=== PATIENT | male | born 1995 | race African-American/Black ===

== ENCOUNTER 2017-10-29 16:39 | Emergency (ER) | payer OTHER ==
[~2017-10-29] VITALS: Ht 180.3 cm; Wt 112.0 kg
[2017-10-29 16:50] VITALS: Ht 180.3 cm; Wt 112.0 kg
[2017-10-29] MEDS ORDERED: CLX40 PO (17:23)
--- NOTE | 2017-10-29 17:41 | EMERGENCY ROOM VISIT NOTE ---
History Report prepared by Ken: Shruthi Brown Under the Supervision of: Dr. Dhruv Snyder M.D. First contact with patient: 17:21 Chief Complaint: MENTAL HEALTH EVALUATION Stated Complaint: DEPRESSION History of Present Illness The patient is a 22 year old male who presents to the Emergency Room with complaints of waxing and waning depression for the past couple of months. He states he has had thoughts about suicide but he has been trying to push them away. He has been smoking marijuana to try to cope with his feelings. He has never wanted to hurt himself like this in the past. He says he is having troubles with social anxiety and went to group therapy to try to make himself less lonely, but it made him feel worse. He did not know he had clinical depression until he went to go see a therapist once he was a college student. He says he sometimes hears voices but the patient thinks it is just him trying to figure out his thoughts. He states his thoughts seem out of his normal scope of thinking, but he does not believe he is schizophrenia. He denies any chest pain, nausea, fevers, or headaches. He follows with Dr. Ashraf regularly. Source of History: patient Onset: couple of months ago Position: other (global) Timing: waxes/wanes Modifying Factors (Relieving): other (marajuana) Associated Symptoms: No fevers, No headache, No chest pain, No nausea Review of Systems See HPI for pertinent positives and negatives. A total of ten systems were reviewed and were otherwise negative. Family History Patient reports no known family medical history. Social History Drug Use: marijuana Housing Status: lives with roommate Occupation Status: student Current/Historical Medications Scheduled Citalopram (Citalopram Hydrobromide), 40 MG PO DAILY Allergies Coded Allergies: No Known Allergies (Unverified , 10/29/17) Physical Exam Vital Signs Date Time Temp Pulse Resp B/P (MAP) Pulse Ox O2 Delivery O2 Flow Rate FiO2 10/29/17 21:00 78 18 130/83 97 Room Air 10/29/17 18:32 71 16 117/83 97 Room Air 10/29/17 16:50 37.0 81 18 129/91 93 Room Air Physical Exam GENERAL: Awake, alert, well-appearing, in no distress. Depressed affect. HENT: Normocephalic, atraumatic. Oropharynx unremarkable. EYES: Normal conjunctiva. Sclera non-icteric. NECK: Supple. No nuchal rigidity. FROM. No JVD. RESPIRATORY: Clear to auscultation. CARDIAC: Regular rate, normal rhythm. Extremities warm and well perfused. Pulses equal. ABDOMEN: Soft, non-distended. No tenderness to palpation. No rebound or guarding. No masses. RECTAL: Deferred. MUSCULOSKELETAL: Chest examination reveals no tenderness. The back is symmetrical on inspection without obvious abnormality. There is no CVA tenderness to palpation. No joint edema. LOWER EXTREMITIES: Calves are equal size bilaterally and non-tender. No edema. No discoloration. NEURO: Normal sensorium. No sensory or motor deficits noted. SKIN: No rash or jaundice noted. PSYCH: Positive suicidal ideation with plan for overdose. Question internal stimulus versus auditory hallucinations. Medical Decision & Procedures ER Provider Diagnostic Interpretation: Radiology results as stated below per my review and radiologist interpretation: CHEST ONE VIEW PORTABLE CLINICAL HISTORY: cp dyspnea COMPARISON STUDY: No previous studies for comparison. FINDINGS: The bones soft tissues and hemidiaphragms are normal. The cardiomediastinal silhouette is normal. The lungs are clear. The pulmonary vasculature is normal. IMPRESSION: Negative chest. The above report was generated using voice recognition software. It may contain grammatical, syntax or spelling errors. Electronically signed by: Tigre Morrell M.D. 10/29/2017 5:57 PM Dictated Date/Time: 10/29/2017 5:57 PM Laboratory Results 10/29/17 17:40 Red Blood Count 6.18, Mean Corpuscular Volume 73.0, Mean Corpuscular Hemoglobin 23.8, Mean Corpuscular Hemoglobin Concent 32.6, Mean Platelet Volume 8.6, Neutrophils (%) (Auto) 51.0, Lymphocytes (%) (Auto) 38.9, Monocytes (%) (Auto) 6.3, Eosinophils (%) (Auto) 3.3, Basophils (%) (Auto) 0.3, Neutrophils # (Auto) 4.38, Lymphocytes # (Auto) 3.34, Monocytes # (Auto) 0.54, Eosinophils # (Auto) 0.28, Basophils # (Auto) 0.03 10/29/17 17:40 Test 10/29/17 17:00 10/29/17 17:40 Urine Color DK YELLOW Urine Appearance CLEAR (CLEAR) Urine pH 5.5 (4.5-7.5) Urine Specific [place] 1.033 (1.000-1.030) Urine Protein NEG (NEG) Urine Glucose (UA) NEG (NEG) Urine Ketones 1+ (NEG) Urine Occult Blood NEG (NEG) Urine Nitrite NEG (NEG) Urine Bilirubin NEG (NEG) Urine Urobilinogen NEG (NEG) Urine Leukocyte Esterase NEG (NEG) Urine Opiates Screen NEG (NEG) Urine Methadone, Qualitative NEG (NEG) Urine Barbiturates NEG (NEG) Urine Phencyclidine (PCP) Level NEG (NEG) Ur Amphetamine/Methamphetamine NEG (NEG) MDMA (Ecstasy) Screen NEG (NEG) Urine Benzodiazepines Screen NEG (NEG) Urine Cocaine Metabolite NEG (NEG) Urine Marijuana (THC) POS (NEG) White Blood Count 8.59 K/uL (4.8-10.8) Red Blood Count 6.18 M/uL (4.7-6.1) Hemoglobin 14.7 g/dL (14.0-18.0) Hematocrit 45.1 % (42-52) Mean Corpuscular Volume 73.0 fL (80-100) Mean Corpuscular Hemoglobin 23.8 pg (25-34) Mean Corpuscular Hemoglobin Concent 32.6 g/dl (32-36) Platelet Count 240 K/uL (130-400) Mean Platelet Volume 8.6 fL (7.4-10.4) Neutrophils (%) (Auto) 51.0 % Lymphocytes (%) (Auto) 38.9 % Monocytes (%) (Auto) 6.3 % Eosinophils (%) (Auto) 3.3 % Basophils (%) (Auto) 0.3 % Neutrophils # (Auto) 4.38 K/uL (1.4-6.5) Lymphocytes # (Auto) 3.34 K/uL (1.2-3.4) Monocytes # (Auto) 0.54 K/uL (0.11-0.59) Eosinophils # (Auto) 0.28 K/uL (0-0.5) Basophils # (Auto) 0.03 K/uL (0-0.2) RDW Standard Deviation 44.0 fL (36.4-46.3) RDW Coefficient of Variation 16.9 % (11.5-14.5) Immature Granulocyte % (Auto) 0.2 % Immature Granulocyte # (Auto) 0.02 K/uL (0.00-0.02) Anion Gap 2.0 mmol/L (3-11) Est Creatinine Clear Calc Drug Dose 149.9 ml/min Estimated GFR () 125.0 Estimated GFR (Non- 107.9 BUN/Creatinine Ratio 8.4 (10-20) Calcium Level 9.1 mg/dl (8.5-10.1) Total Bilirubin 0.5 mg/dl (0.2-1) Aspartate Amino Transf (AST/SGOT) 33 U/L (15-37) Alanine Aminotransferase (ALT/SGPT) 30 U/L (12-78) Alkaline Phosphatase 52 U/L (45-117) Troponin I < 0.015 ng/ml (0-0.045) Total Protein 8.4 gm/dl (6.4-8.2) Albumin 3.9 gm/dl (3.4-5.0) Globulin 4.5 gm/dl (2.5-4.0) Albumin/Globulin Ratio 0.9 (0.9-2) Thyroid Stimulating Hormone (TSH) 1.070 uIu/ml (0.300-4.500) Salicylates Level < 1.7 mg/dl (2.8-20) Acetaminophen Level < 2 ug/ml (10-30) Ethyl Alcohol mg/dL < 3.0 mg/dl (0-3) Laboratory results reviewed by me ECG Indication: other (depression ) Rate (beats per minute): 69 Rhythm: normal sinus Findings: no acute ischemic change, other (normal axis ) Comparison ECG Date: no prior available Change: Patient's electrocardiogram interpreted by me. ED Course 1729: The patient was evaluated in room A8. A complete history and physical exam was performed. 2146: I checked on the patient at this time. He appeared content. Medical Decision I reviewed the patient's past medical history, medications, and the nursing notes as described above. Differential diagnosis: Etiologies such as mood disorder, infection, hypoglycemia, electrolyte abnormalities, cardiac sources, intracerebral event, toxicologic, neurologic, as well as others were entertained. The patient is a 22-year-old gentleman currently a university student studying [employer] this emergency Department with ongoing depression and worsening suicidal thoughts with plan to overdose on his medications referred to the emergency department by [facility] per HPI. On arrival, in no acute distress, afebrile stable vital signs. Patient has a depressed affect and reports suicidal thoughts with frequent thoughts of overdosing on his medications. It is equivocal when asked about hearing voices saying that he does not necessarily hear voices but has thoughts that he feels are not his own. Labs unremarkable in the patient was medically cleared. The patient's active suicidal thoughts with plan we recommended inpatient admission to the patient. However, at this time the patient reported that he is feeling better and preferred not to be admitted. However given the patient's concerning report of his suicidality with plan I to be given the patient that we would file a 302 if he was not agreeable. Subsequently the patient was cooperative and agreed to sign a 201, which was signed. The patient was accepted to [facility] and transport is pending. Medication Reconcilliation Current Medication List: was personally reviewed by me Blood Pressure Screening Patient's blood pressure: Normal blood pressure Blood pressure disposition: Did not require urgent referral Impression Primary Impression: Suicidal ideation Additional Impression: Depression Scribe Attestation The scribe's documentation has been prepared under my direction and personally reviewed by me in its entirety. I confirm that the note above accurately reflects all work, treatment, procedures, and medical decision making performed by me. Departure Information Dispostion Still a Patient Referrals No Doctor, Assigned (PCP) Patient Instructions [facility] Problem Qualifiers
[2017-10-29 17:53] LABS: BASO % 0.3 %; BASO ABS # 0.03 K/uL (0-0.2); EOS % 3.3 %; EOS ABS # 0.28 K/uL (0-0.5); HEMATOCRIT 45.1 % (42-52); HEMOGLOBIN 14.7 g/dL (14.0-18.0); IG# 0.02 K/uL (0.00-0.02); LYMPH % 38.9 %; LYMPH ABS # 3.34 K/uL (1.2-3.4); MEAN CORPUSCULAR HEMOGLOBIN 23.8 pg (25-34); MEAN CORPUSCULAR HGB CONC 32.6 g/dl (32-36); MEAN PLATELET VOLUME 8.6 fL (7.4-10.4); MONO % 6.3 %; MONO ABS # 0.54 K/uL (0.11-0.59); NEUT ABS # 4.38 K/uL (1.4-6.5); PLATELET COUNT 240 K/uL (130-400); RED CELL DISTRIBUTION WIDTH CV 16.9 % (11.5-14.5); WHITE BLOOD COUNT 8.59 K/uL (4.8-10.8)
--- NOTE | 2017-10-29 17:58 | DIAGNOSTIC IMAGING REPORT ---
CHEST ONE VIEW PORTABLE CLINICAL HISTORY: cp dyspnea COMPARISON STUDY: No previous studies for comparison. FINDINGS: The bones soft tissues and hemidiaphragms are normal. The cardiomediastinal silhouette is normal. The lungs are clear. The pulmonary vasculature is normal. IMPRESSION: Negative chest. The above report was generated using voice recognition software. It may contain grammatical, syntax or spelling errors. Electronically signed by: Tigre Morrell M.D. 10/29/2017 5:57 PM Dictated Date/Time: 10/29/2017 5:57 PM
[2017-10-29 18:16] LABS: ALBUMIN 3.9 gm/dl (3.4-5.0); ALT/SGPT 30 U/L (12-78); AST/SGOT 33 U/L (15-37); BLOOD UREA NITROGEN 8 mg/dl (7-18); CALCIUM 9.1 mg/dl (8.5-10.1); CARBON DIOXIDE 31 mmol/L (21-32); GLUCOSE 77 mg/dl (70-99); POTASSIUM 4.3 mmol/L (3.5-5.1); SODIUM 137 mmol/L (136-145)
[2017-10-29 18:26] LABS: ALKALINE PHOSPHATASE 52 U/L (45-117); TOTAL PROTEIN 8.4 gm/dl (6.4-8.2)
[2017-10-30 04:30] VITALS: BP 107/66; PULSE 64; TEMP 37; O2SAT 96
== END 2017-10-30 04:25 ==
LOC: C.EDB 16:42 → C.EDA 10-30 04:25
DX: F32.9 Major depressive disorder, single episode, unspecified (principal); R45.851 Suicidal ideations; F12.90 Cannabis use, unspecified, uncomplicated; F41.9 Anxiety disorder, unspecified; Z79.899 Other long term (current) drug therapy